=== PATIENT | male | born 2000 | race Caucasian/White ===

== ENCOUNTER 2025-04-26 15:09 | Outpatient (CLI) | payer OTHER ==
--- NOTE | 2025-04-26 15:44 | RADIOLOGY REPORT ---
CHEST RADIOGRAPH Indication: CHEST PAIN Technique: Frontal and lateral view of the chest was obtained Comparison: None FINDINGS: Lines and Tubes: None Lungs: Clear Pleura: No effusion. No pneumothorax. Cardiomediastinal contours: Unremarkable Bones: Unremarkable IMPRESSION: No evidence of acute disease.
== END 2025-04-26 23:59 | disposition home or self-care (01) ==
LOC: RAD 15:09
PROVIDERS: ATTEND Chiropractor
DX: R07.9 Chest pain, unspecified (principal)
CPT/HCPCS: 71046